=== PATIENT | female | born 1955 | race Caucasian/White ===

== ENCOUNTER 2017-04-05 15:37 | Inpatient (IN) | payer MEDICARE, OTHER ==
[~2017-04-05 15:37] MED LIST: ASPIRIN EC325 MG PO; CEFDINIR300 MG PO; DIGITEK250 MCG PO; DUONEB 2.5-0.5M1 AMP INH; LEVAQUIN500 MG PO; MEDROL4 M1 PO; MUCINEX 600MG600 MG PO; NICOTINE PATCH1 EAC2 TOP; NORVASC2.5 MG PO; NORVASC5 MG PO; PAXIL20 MG PO; PREDNISONE 10MG10 MG PO; PROAIR HFA8.5 GM INH; PROAIR HFA8.5 GM PO; SPIRIVA RESPIMAT4 G1 PO; SPIRIVA18 MCG INH; SYMBICORT 16010.2 GM PO; SYMBICORT 80-10.2 GM INH; TOPROL XL 25MG25 MG PO; TYLENOL OTC; VENTOLIN (2.5 MG/3 M NEB; ZANTAC150 MG PO
[2017-04-05 16:22] LABS: PROTHROMBIN TIME 12.8 SECONDS (11.7-14.0); PTT 25.1 SECONDS (23.2-31.4)
[2017-04-05 16:25] LABS: BASOPHIL 0.1 % (0-2); EOSINOPHIL 0 % (0-5); HGB 13.5 g/dl (12.5-16.0); LYMPHOCYTE 2.6 % (15-48); MCH 30.2 pg (25.0-31.0); MCHC 31.4 g/dL (32.0-36.0); MCV 96.2 fL (78.0-100.0); MONOCYTE 3.9 % (0-12); NEUTROPHIL 93.4 % (41-80); PLT 223 K/uL (150-400); RBC 4.47 M/uL (4.20-5.40); RDW 16.3 % (11.5-14.0)
[2017-04-05 16:28] LABS: ALBUMIN 3.9 g/dL (3.5-5.0); BILIRUBIN - TOTAL 0.4 mg/dL (0.1-1.0); CREATININE 0.5 mg/dL (0.5-1.0); GLOBULIN (CALCULATION) 3.2 g/dL (2.2-4.2); POTASSIUM 4.6 mmol/L (3.5-5.1); TOTAL PROTEIN 7.1 g/dL (6.4-8.3)
[2017-04-05 16:36] LABS: PRO-BNP 367 pg/mL (0-125); TROPONIN T < 0.010 ng/mL
[2017-04-05 16:38] LABS: WBC 38.1 K/uL (4.0-10.5)
[2017-04-05 17:35] LABS: LACTIC ACID 0.7 mmol/L (0.5-2.2)
[2017-04-05 18:25] LABS: BILIRUBIN NEGATIVE (NEGATIVE); BLOOD NEGATIVE Ery/uL (NEGATIVE); CLARITY CLEAR (CLEAR); COLOR YELLOW (YELLOW); GLUCOSE (U) NORMAL (NORMAL); KETONE (U) TRACE mg/dL (NEGATIVE); LEUKOCYTES NEGATIVE Leu/uL (NEGATIVE); NITRITE NEGATIVE (NEGATIVE); PROTEIN 1+ mg/dL (NEGATIVE); SPECIFIC GRAVITY >=1.030 (1.001-1.030); UROBILINOGEN 0.2 mg/dL (0.2-1.0); pH 5.5 (5.0-9.0)
[2017-04-05 18:30] LABS: BACTERIA TRACE
[2017-04-05 22:30] LABS: CKMB 2.63 ng/mL (0.97-4.94); TROPONIN T < 0.010 ng/mL
[2017-04-06 04:39] LABS: BASOPHIL 0.1 % (0-2); EOSINOPHIL 0 % (0-5); HCT 33.8 % (37.0-47.0); HGB 10.6 g/dl (12.5-16.0); LYMPHOCYTE 2.9 % (15-48); MCH 29.6 pg (25.0-31.0); MCHC 31.4 g/dL (32.0-36.0); MCV 94.4 fL (78.0-100.0); MONOCYTE 0.6 % (0-12); NEUTROPHIL 96.4 % (41-80); PLT 179 K/uL (150-400); RBC 3.58 M/uL (4.20-5.40); RDW 16.1 % (11.5-14.0); WBC 19.3 K/uL (4.0-10.5)
[2017-04-06 04:58] LABS: CKMB 1.76 ng/mL (0.97-4.94); TROPONIN T < 0.010 ng/mL
[2017-04-06 05:01] LABS: ALBUMIN 2.9 g/dL (3.5-5.0); BILIRUBIN - TOTAL 0.3 mg/dL (0.1-1.0); CREATININE 0.6 mg/dL (0.5-1.0); GLOBULIN (CALCULATION) 2.6 g/dL (2.2-4.2); MAGNESIUM 1.8 mg/dL (1.40-2.10); POTASSIUM 4.3 mmol/L (3.5-5.1); TOTAL PROTEIN 5.5 g/dL (6.4-8.3)
--- NOTE | 2017-04-06 11:49 | NUR ---
Daughter called via telephone;requesting patient be transferred to [facility]. Dr. Ceballos notified. Dr. Ceballos stated spoke w/[facility], will accept as patient, but currently no beds available. Will Cont. to monitor.
--- NOTE | 2017-04-06 13:30 | NUR ---
#22 LT WRIST IV SITE D/C'D AT THIS TIME;WILL CONT;TO MONITOR
--- NOTE | 2017-04-06 13:30 | NUR ---
DIPRIVAN INCREASED TO 10MCG/KG/MIN;VSS 1400 DIPRIVAN INCREASED TO 20MCG/KG/MIN;VSS
--- NOTE | 2017-04-06 14:40 | NUR ---
PT'S DAUGHTER CALLED VIA TELEPHONE FOR CONSENT TO TRANSPORT;CONSENT OBTAINED.
== END 2017-04-06 15:05 | disposition other institution (70) | DRG 871 ==
LOC: FER 15:37 → FICU 17:49
PROVIDERS: Emergency Medicine; ADMIT Internal Medicine
PROC: 5A1935Z Respiratory Ventilation, Less than 24 Consecutive Hours (ICD-10-PCS; principal; 2017-04-05)
PROC: 0BH17EZ Insertion of Endotracheal Airway into Trachea, Via Natural or Artificial Opening (ICD-10-PCS; principal; 2017-04-05)
DX: A41.9 Sepsis, unspecified organism (principal); J96.21 Acute and chronic respiratory failure with hypoxia; J18.9 Pneumonia, unspecified organism; J44.0 Chronic obstructive pulmonary disease with (acute) lower respiratory infection; J96.22 Acute and chronic respiratory failure with hypercapnia; J44.1 Chronic obstructive pulmonary disease with (acute) exacerbation; R65.20 Severe sepsis without septic shock; R53.1 Weakness; F17.210 Nicotine dependence, cigarettes, uncomplicated; I49.9 Cardiac arrhythmia, unspecified; Z88.5 Allergy status to narcotic agent; Z79.899 Other long term (current) drug therapy
CPT/HCPCS: 31500; 36415; 36600; 71010; 71020; 80053; 81001; 82550; 82553; 82803; 83605; 83735; 83880; 84145; 84484; 85025; 85610; 85730; 87040; 87070; 87088; 87205; 87804; 87899; 92950; 93005; 94002; 94640; 94770; 96374; C9113; J1956; J2060; J2543; J2704; J2930